=== PATIENT | female | born 1985 | race Hispanic/Latino ===

== ENCOUNTER 2018-03-31 18:48 | Emergency (ER) | payer OTHER ==
[2018-03-31 19:34] LABS: #Basophils 0.1 thou/uL (0.0-0.2); #Eosinphils 0.2 thou/uL (0.0-0.7); #Lymphocytes 2.6 thou/uL (1.20-3.40); #Monocytes 0.4 thou/uL (0.11-0.59); #Neutrophils 4.9 thou/uL (1.40-6.50); %Basophils 0.9 % (0.0-1.0); %Eosinophils 1.8 % (0.0-10.0); %Lymphocytes 32.4 % (21.0-51.0); %Neutrophils 59.9 % (42.0-75.0); Hemoglobin 13.8 g/dL (12.0-16.0); Mean Corpuscular HGB CONC 35.3 g/dL (32.0-36.0); Mean Corpuscular Hemoglobin 31.7 pg (27.0-31.0); Mean Corpuscular Volume 89.8 fL (78.0-98.0); Mean Platelet Volume 6.1 fL (7.4-10.4); Platelet Count 310 thou/uL (130-400); Red Blood Cell (RBC) Count 4.34 mill/uL (4.20-5.40); White Blood Cell (WBC) Count 8.1 thou/uL (4.8-10.8)
[2018-03-31 19:50] LABS: ALT (SGPT) 80 U/L (8-55); AST (SGOT) 60 U/L (5-34); Albumin 4.4 g/dL (3.5-5.0); Alkaline Phosphatase 73 U/L (40-150); Anion Gap 16 mmol/L (10-20); BUN (Urea Nitrogen) 15 mg/dL (7.0-18.7); Bilirubin, Total 0.5 mg/dL (0.2-1.2); Calc. Creatinine Clearance 0 mL/min (70-130); Calcium 9.4 mg/dL (7.8-10.44); Carbon Dioxide 22 mmol/L (22-29); Chloride 106 mmol/L (98-107); Estimated GFR-MDRD 73; Globulin 4.3 g/dL (2.4-3.5); Glucose 138 mg/dL (70-105); Potassium 3.6 mmol/L (3.5-5.1); Protein, Total 8.7 g/dL (6.0-8.3); Sodium 140 mmol/L (136-145)
--- NOTE | 2018-03-31 21:05 | RAD ---
PORTABLE CHEST 03/31/18 An AP portable film at 1908 shows a normal sized heart and clear lungs. No infiltrate, effusion or va scular congestion was seen. The trachea is midline and the mediastinum appears normal. IMPRESSION: No acute thoracic finding. POS: HOME
--- NOTE | 2018-03-31 22:42 | CT ---
CT ANGIO OF THE CHEST AND CT ABDOMEN (AORTIC DISSECTION PROTOCOL) 03/31/[address] of the chest was done after a bolus of IV contrast followed by slices through the aortic b ifurcation. Axial and coronal reconstructions were done. The aorta is moderately well opacified and showed no sign of aneurysm, dissection, or other defects o f concern. While not done as a pulmonary embolism study, there is moderate good opacification of the proximal branches of the pulmonary arteries. No defects were seen here to suggest emboli. There is no sign of pericardial effusion. There is no significant coronary calcifications. No mediastinal mass o r adenopathy was seen. The lungs are clear with no sign of major infiltrate, effusion, or pneumothora x. The aorta in the abdominal region showed good filling of the celiac artery, SMA, DELMY, and each renal artery. There is no aneurysm or dissection apparent. The liver is moderately generous in size and sl ightly low density. Diffuse fatty infiltration is presumed. The pancreas, spleen, adrenal glands and kidneys showed no findings of concern. The proximal iliac arteries are imaged and were unremarkable i n appearance. At the T7-T8 level, there is some posterior osteophyte which impinges upon the thecal sac somewhat on the left side and at T6-T7 perhaps a little on the right side. IMPRESSION: 1. No evidence of aortic dissection or gross pulmonary emboli. 2. No acute thoracic process seen. 3. Mild hepatic enlargement with diffuse fatty infiltration. POS: HOME
== END 2018-03-31 21:02 | disposition home or self-care (01) ==
LOC: BURERS 18:48
DX: R07.89 Other chest pain (principal); F32.9 Major depressive disorder, single episode, unspecified; Z79.899 Other long term (current) drug therapy
CPT/HCPCS: 71045; 71275; 80053; 84484; 85025; 85379; 93005

== ENCOUNTER 2019-02-24 11:25 | Emergency (ER) | payer OTHER ==
[2019-02-24] MEDS ORDERED: Adacel (T-DAP) 0.5 ML SYRINGE ONE (12:25)
--- NOTE | 2019-02-24 12:56 | RAD ---
THREE VIEWS RIGHT FOOT: HISTORY: Laceration to plantar aspect of the forefoot. Patient foot with glass. Evaluate for foreign body. FINDINGS: There is subcutaneous soft tissue swelling seen on the plantar aspect of the forefoot at the level of the metatarsophalangeal joints. Punctate focus of gas is seen in this region which may represent th e patient's know wound and laceration. No obvious radiopaque foreign body is seen. However, the rad iopaque foreign body is glass which may be difficult to visualize on radiographic evaluation. There is no evidence of a fracture or dislocation. A small plantar calcaneus enthesophyte is seen. No oth er osseous abnormality. IMPRESSION: Subcutaneous soft tissue swelling and findings suggesting laceration/wound at the plantar aspect righ t forefoot. A definite radiopaque foreign body is not visualized, but the radiopaque foreign body is glass, which may not be well seen on radiographic evaluation. POS: [facility]
== END 2019-02-24 12:38 | disposition home or self-care (01) ==
LOC: BURERS 11:25
DX: S91.311A Laceration without foreign body, right foot, initial encounter (principal); Z79.899 Other long term (current) drug therapy; W25.XXXA Contact with sharp glass, initial encounter
CPT/HCPCS: 90471; 90715